=== PATIENT | male | born 1985 | race Caucasian/White ===

== ENCOUNTER 2017-10-21 09:37 | Emergency (ER) | payer MEDICAID ==
[2017-10-21] MEDS: HYDROCODONE/APAP (5/325) TAB PO (10:30)
== END 2017-10-21 11:53 | disposition home or self-care (01) ==
LOC: FTE 09:37
DX: M25.571 Pain in right ankle and joints of right foot (principal); Z87.891 Personal history of nicotine dependence
CPT/HCPCS: 73610; 73610-RT; 99283-25

== ENCOUNTER 2017-11-27 21:06 | Emergency (ER) | payer MEDICAID ==
[2017-11-27] MEDS: ACETAMINOPHEN 500 MG TAB PO (23:52)
== END 2017-11-28 01:38 | disposition home or self-care (01) ==
LOC: FTE 11-28 01:38
DX: M54.6 Pain in thoracic spine (principal); Z87.891 Personal history of nicotine dependence
CPT/HCPCS: 72072; 99283-25

== ENCOUNTER 2018-03-16 10:16 | Emergency (ER) | payer MEDICAID ==
[2018-03-16] MEDS: KETOROLAC 60 MG INJ IM (12:08)
== END 2018-03-16 13:23 | disposition home or self-care (01) ==
LOC: FTE 10:16
DX: M25.561 Pain in right knee (principal)
CPT/HCPCS: 73562; 93971; 96372; 99285-25

== ENCOUNTER 2018-10-08 20:46 | Emergency (ER) | payer MEDICAID ==
[2018-10-08] MEDS: IBUPROFEN 600 MG TAB PO (23:41)
== END 2018-10-09 01:10 | disposition home or self-care (01) ==
LOC: FTE 10-09 01:10
DX: M79.672 Pain in left foot (principal)
CPT/HCPCS: 73630; 73630-LT; 99283-25